=== PATIENT | male | born 1980 | race Caucasian/White ===

== ENCOUNTER 2017-10-19 20:58 | Emergency (ER) | payer BC ==
[~2017-10-19] VITALS: Ht 182.9 cm; Wt 76.2 kg
[~2017-10-19 20:58] MED LIST: TRAZ100 PO
[2017-10-19] MEDS ORDERED: Prednisone10 MG PO (21:49)
[2017-10-19] MEDS ORDERED: LIDO700A20 TOP (21:49)
[2017-10-19] MEDS ORDERED: VALACYCLOVIR1000 MG PO (21:49)
== END 2017-10-19 22:14 | disposition home or self-care (01) ==
LOC: ER 20:58
DX: B02.9 Zoster without complications (principal); F17.220 Nicotine dependence, chewing tobacco, uncomplicated; F17.210 Nicotine dependence, cigarettes, uncomplicated; Z88.2 Allergy status to sulfonamides; Z88.1 Allergy status to other antibiotic agents
CPT/HCPCS: 99282